=== PATIENT | female | born 1995 | race Caucasian/White ===

== ENCOUNTER 2019-08-21 20:50 | Emergency (ER) | payer MEDICAID ==
[2019-08-21] MEDS ORDERED: Ondansetron 4 MG Tab.DIS PO ONE (21:19)
[2019-08-21] MEDS ORDERED: Ketorolac 60 MG/2 ML SDV IM ONE (21:30)
--- NOTE | 2019-08-21 21:34 | EDM.PDOC ---
ED HPI GENERAL MEDICAL PROBLEM - General Chief Complaint: Flank Pain Stated Complaint: RI SIDE PAIN Time Seen by Provider: 08/21/19 21:25 Source of Information: Reports: Patient, RN History Limitations: Reports: No Limitations - History of Present Illness INITIAL COMMENTS - FREE TEXT/NARRATIVE: 24 yo female here with R flank pain. Sx's began yesterday and were intermittent initially. Sx's now constant and associated with nausea. No vomiting or fever. No hematuria, some dysuria. No hx of stones or UTI's. Onset: Gradual Onset Date: 08/20/19 Duration: Day(s): (1+), Getting Worse Location: Reports: Other (R flank) Quality: Reports: Ache Severity: Moderate Improves with: Reports: None Worsens with: Reports: Other (time) Context: Reports: Other (See HPI) Associated Symptoms: Reports: Nausea/Vomiting (no vomiting). Denies: Fever/ Chills Treatments COMPUTER SYSTEMS MANAGER: Reports: Other (see below) (none) right flank Pain Score (Numeric/FACES): 7 - Related Data Allergies Allergy/AdvReac Type Severity Reaction Status Date / Time No Known Allergies Allergy Verified 08/21/19 21:19 Home Meds: Home Meds Cephalexin [Keflex] 500 mg PO Q8H #14 capsule 08/21/19 [Rx] Ciprofloxacin [Ciprofloxacin HCl] 250 mg PO Q12H #14 tablet 08/21/19 [Rx] Ondansetron [Zofran ODT] 4 mg PO Q6H PRN #4 tab.dis 08/21/19 [Rx] Past Medical History - Past Surgical History GI Surgical History: Reports: Appendectomy Social & Family History - Tobacco Use Smoking Status *Q: Current Every Day Smoker Years of Tobacco use: 4 Packs/Tins Daily: 0.5 - Caffeine Use Caffeine Use: Reports: Coffee, Energy Drinks, Tea - Alcohol Use Days Per Week of Alcohol Use: 2 Number of Drinks Per Day: 4 Total Drinks Per Week: 8 - Recreational Drug Use Recreational Drug Use: Yes Drug Use in Last 12 Months: Yes Recreational Drug Type: Reports: Marijuana/Hashish Recreational Drug Use Frequency: Weekly ED ROS GENERAL - Review of Systems Review Of Systems: See Below Constitutional: Reports: No Symptoms HEENT: Reports: No Symptoms Respiratory: Reports: No Symptoms Cardiovascular: Reports: No Symptoms GI/Abdominal: Reports: Nausea. Denies: Vomiting : Reports: Dysuria (mild), Flank Pain (right) Skin: Reports: No Symptoms Neurological: Reports: No Symptoms ED EXAM, RENAL/ - Physical Exam Exam: See Below Exam Limited By: No Limitations General Appearance: Alert, WD/WN, No Apparent Distress Eye Exam: Bilateral Eye: Normal Inspection Respiratory/Chest: No Respiratory Distress, Lungs Clear, Normal Breath Sounds, No Accessory Muscle Use Cardiovascular: Regular Rate, Rhythm, No Edema GI/Abdominal: Normal Bowel Sounds, Soft, Non-Tender, No Distention Back Exam: Normal Inspection, CVA Tenderness (R). No: CVA Tenderness (L), Muscle Spasm, Paraspinal Tenderness, Vertebral Tenderness Extremities: Normal Inspection, Normal Range of Motion, Non-Tender, No Pedal Edema Neurological: Alert, Oriented, CN II-XII Intact, Normal Cognition, No Motor/ Sensory Deficits Psychiatric: Normal Affect, Normal Mood Skin Exam: Warm, Dry, Intact, Normal Color, No Rash Course - Vital Signs Last Recorded V/S: Last Vital Signs Temp 36.8 C 08/21/19 21:23 Pulse 56 L 08/21/19 21:23 Resp 18 08/21/19 21:23 BP 114/79 08/21/19 21:23 Pulse Ox 99 08/21/19 21:23 - Orders/Labs/Meds Orders: Active Orders 24 hr Category Date Time Status CULTURE URINE [RM] Stat Lab 08/21/19 21:30 Received Labs: Laboratory Tests 08/21/19 Range/Units 21:19 Urine Color Yellow (YELLOW) Urine Appearance Cloudy A (CLEAR) Urine pH 8.5 H (5.0-8.0) Ur Specific [place] 1.020 (1.008-1.030) Urine Protein 100 H (NEGATIVE) mg/dL Urine Glucose (UA) Negative (NEGATIVE) mg/dL Urine Ketones Negative (NEGATIVE) mg/dL Urine Occult Blood Moderate H (NEGATIVE) Urine Nitrite Negative (NEGATIVE) Urine Bilirubin Negative (NEGATIVE) Urine Urobilinogen 0.2 (0.2-1.0) EU/dL Ur Leukocyte Esterase Small H (NEGATIVE) Urine RBC 40-50 H (0-5) Urine WBC 20-30 H (0-5) Ur Epithelial Cells Moderate Amorphous Sediment Not seen Urine Bacteria Many Urine Mucus Numerous Meds: Medications Discontinued Medications Generic Name Dose Route Start Last Admin Trade Name Freq PRN Reason Stop Dose Admin Cephalexin 500 mg 08/21/19 21:51 Keflex PO 08/21/19 21:52 ONETIME ONE Ciprofloxacin 500 mg 08/21/19 21:52 Ciprofloxacin Hcl PO 08/21/19 21:53 ONETIME ONE Ketorolac Tromethamine 60 mg 08/21/19 21:30 08/21/19 21:50 Toradol IM 08/21/19 21:31 60 mg ONETIME ONE Administration Ondansetron HCl 4 mg 08/21/19 21:19 08/21/19 21:26 Zofran Odt PO 08/21/19 21:20 4 mg ONETIME ONE Administration Departure - Departure Time of Disposition: 22:05 Disposition: Home, Self-Care 01 Condition: Fair Clinical Impression: Kidney infection - Discharge Information *PRESCRIPTION DRUG MONITORING PROGRAM REVIEWED*: No *COPY OF PRESCRIPTION DRUG MONITORING REPORT IN PATIENT MICHELE: No Prescriptions: Cephalexin [Keflex] 500 mg PO Q8H #14 capsule Ciprofloxacin [Ciprofloxacin HCl] 250 mg PO Q12H #14 tablet Ondansetron [Zofran ODT] 4 mg PO Q6H PRN #4 tab.dis PRN Reason: Nausea Referrals: PCP,None [Primary Care Provider] - Forms: ED Department Discharge Additional Instructions: Take ciprofloxacin and cephalexin as directed. Drink ample fluids. Take acetaminophen 1000 mg every 6 hrs for pain relief. Add ibuprofen 600 mg every 6 hrs as needed for added relief. Recheck in the clinic on Friday morning to review your urine culture results. Return if worse in the interim. Zofran as directed for nausea control. - My Orders Last 24 Hours: My Active Orders 08/21/19 21:30 CULTURE URINE [RM] Stat - Assessment/Plan Last 24 Hours: My Active Orders 08/21/19 21:30 CULTURE URINE [RM] Stat
[2019-08-21] MEDS ORDERED: Cephalexin 250 MG Cap PO ONE (21:51)
[2019-08-21] MEDS ORDERED: Ciprofloxacin 500 MG Tab PO ONE (21:52)
== END 2019-08-21 22:11 | disposition home or self-care (01) ==
LOC: JP.ED 20:50
DX: N15.9 Renal tubulo-interstitial disease, unspecified (principal); F17.210 Nicotine dependence, cigarettes, uncomplicated
CPT/HCPCS: 81001; 87086; 96372; 99284; A9270; J1885; 87088; 87186